=== PATIENT | female | born 2000 | race Caucasian/White ===

== ENCOUNTER 2021-01-09 09:20 | Emergency (ER) | payer BC ==
[2021-01-09 09:28] VITALS: BP 102/56; PULSE 100; RESP 18; TEMP 98
--- NOTE | 2021-01-09 09:51 | ED ---
General Adult HPI - General Chief complaint: Extremity Injury, Lower Stated complaint: R leg pain Time Seen by Provider: 01/09/21 09:25 Source: patient, RN notes reviewed, old records reviewed Mode of arrival: wheelchair Limitations: no limitations - History of Present Illness Initial comments: This is a 20-year-old female presents emergency Department with a two-week history of right sided pain that she states radiates from her hip down to just below her knee. Patient denies any injury or trauma. Patient states she has no weakness or numbness. There is no areas of swelling or redness. Patient denies any back pain. Patient denies any fever chills. Patient denies any other joint pains or problems. Patient states years ago she injured both the knee and hip but doesn't know what was injured. Patient states she went to urgent care and they told her to follow up with orthopedics however she has yet to do so. Patient is taking baclofen and meloxicam - Related Data Allergies Allergy/AdvReac Type Severity Reaction Status Date / Time No Known Allergies Allergy Verified 01/09/21 09:25 Review of Systems ROS Statement: Those systems with pertinent positive or pertinent negative responses have been documented in the HPI. ROS Other: All systems not noted in ROS Statement are negative. Past Medical History Past Medical History: No Reported History History of Any Multi-Drug Resistant Organisms: None Reported Past Surgical History: No Surgical Hx Reported Past Psychological History: No Psychological Hx Reported Smoking Status: Never smoker Past Alcohol Use History: None Reported Past Drug Use History: None Reported General Exam - General Exam Comments Initial Comments: GENERAL: Patient is well-developed and well-nourished. Patient is nontoxic and well-hydrated and is in mild distress. ENT: Neck is soft and supple. No significant lymphadenopathy is noted. Oropharynx is clear. Moist mucous membranes. Neck has full range of motion without eliciting any pain. EYES: The sclera were anicteric and conjunctiva were pink and moist. Extraocular movements were intact and pupils were equal round and reactive to light. Eyelids were unremarkable. PULMONARY: Unlabored respirations. Good breath sounds bilaterally. No audible rales rhonchi or wheezing was noted. CARDIOVASCULAR: There is a regular rate and rhythm without any murmurs gallops or rubs. ABDOMEN: Soft and nontender with normal bowel sounds. SKIN: Skin is clear with no lesions or rashes and otherwise unremarkable. NEUROLOGIC: Patient is alert and oriented x3. Cranial nerves II through XII are grossly intact. Motor and sensory are also intact. Normal speech, volume and content. Symmetrical smile. MUSCULOSKELETAL: Normal extremities with adequate strength and full range of motion. Patient has no redness or swelling. Patient has no ligament laxity at the knee. Patient is very minimal hip tenderness to palpation. LYMPHATICS: No significant lymphadenopathy is noted PSYCHIATRIC: Normal psychiatric evaluation. Limitations: no limitations Course Vital Signs 01/09/21 09:25 Temperature 98 F Pulse Rate 100 Respiratory 18 Rate Blood Pressure 102/56 O2 Sat by Pulse 100 Oximetry Medical Decision Making - Medical Decision Making patient already took meloxicam today. No acute fractures noted however there might be some femoral acetabular impingement syndrome. Disposition Clinical Impression: Femoral acetabular impingement Disposition: HOME SELF-CARE Condition: Good Instructions (If sedation given, give patient instructions): Hip Pain (ED) Is patient prescribed a controlled substance at d/c from ED?: No Referrals: Joseph Oliver MD [STAFF PHYSICIAN] - 1-2 days Time of Disposition: 11:40
--- NOTE | 2021-01-09 10:47 | XR ---
EXAMINATION TYPE: XR pelvis AP view, XR knee complete 3 views RT DATE OF EXAM: 01/09/2021 COMPARISON: NONE HISTORY: 20-year-old female hip pain FINDINGS: Small crossover signs of the hips. Small fibrocystic change superior left femoral head neck junction. SI joints appear symmetric and intact as do the pubic symphysis. No acute fracture, subluxation, or dislocation. Right knee shows no acute fracture, subluxation, or dislocation. No sizable joint effusion. Extensor mechanism appears intact. IMPRESSION: 1. Pelvis: Some subtle bony changes at both hips may reflect underlying femoral acetabular impingemen t syndrome. Correlate with physical exam testing. No acute osseous abnormality seen. 2. Right knee: No acute osseous abnormality seen.
== END 2021-01-09 11:55 | disposition home or self-care (01) ==
LOC: EC 09:20
DX: M25.851 Other specified joint disorders, right hip (principal)
CPT/HCPCS: 72170; 99284